=== PATIENT | female | born 1975 | race Caucasian/White ===

== ENCOUNTER 2021-01-17 09:44 | Inpatient (IN) ==
[2021-01-17 10:24] LABS: Basophils # (auto) 0.04 K/uL (0-0.2); Basophils % (auto) 0.6 %; Eosinophils # (auto) 0.45 K/uL (0-0.5); Eosinophils % (auto) 6.9 %; Hematocrit (blood only) 40.3 % (37-47); Immature Granulocytes # (auto) 0.01 K/uL (0.00-0.02); Immature Granulocytes % (auto) 0.2 %; Lymphocytes # (auto) 1.61 K/uL (1.2-3.4); Lymphocytes % (auto) 24.7 %; Mean Corpuscular Hemoglobin 30.9 pg (25-34); Mean Corpuscular Hgb Conc 34.7 g/dL (32-36); Mean Platelet Volume 10.6 fL (7.4-10.4); Monocytes # (auto) 0.52 K/uL (0.11-0.59); Neutrophils # (auto) 3.89 K/uL (1.4-6.5); Neutrophils % (auto) 59.6 %; Platelet Count 160 K/uL (130-400); RDW Coefficient of Variation 12.9 % (11.5-14.5); RDW Standard Deviation 41.8 fL (36.4-46.3); Red Blood Count 4.53 M/uL (4.2-5.4); White Blood Count 6.52 K/uL (4.8-10.8)
--- NOTE | 2021-01-17 10:40 | XRay Report ---
XR chest 1V portable HISTORY: Atypical chest pain. Right-sided chest pain. COMPARISON: None. FINDINGS: A few left basilar linear densities favoring subsegmental atelectasis or scarring. Otherwis e, lungs are clear. The heart is normal in size. No pleural effusions. No pneumothorax. IMPRESSION: A few small linear densities at the left lung base favor subsegmental atelectasis or scarring. Otherw ise, no acute process within the chest. ACT 112: Negative or not required by law. Electronically signed by: Zechariah Ceja M.D. 01/17/2021 10:38 AM
[2021-01-17 11:04] LABS: Alanine Aminotransferase 27 U/L (12-78); Albumin Level 3.6 gm/dl (3.4-5.0); Alkaline Phosphatase 63 U/L (45-117); BUN Creatinine Ratio 21.3 (10-20); Bilirubin,Total 0.4 mg/dl (0.2-1); Blood Urea Nitrogen 16 mg/dl (7-18); Calcium 9.1 mg/dl (8.5-10.1); Carbon Dioxide 26 mmol/L (21-32); Chloride 109 mmol/L (98-107); Creatinine Clr Calc Pharmacy 127.7 ml/min; Est GFR (African American) 108.3; Est GFR (Non-African American) 93.4; Globulin 3.7 gm/dl (2.5-4.0); Glucose 84 mg/dl (70-99); Total Protein 7.3 gm/dl (6.4-8.2); Troponin I < 0.015 ng/ml (0-0.045)
[2021-01-17 11:15] LABS: Aspartate Aminotransferase 16 U/L (15-37); Potassium 4.7 mmol/L (3.5-5.1); Sodium 142 mmol/L (136-145)
[2021-01-17 12:47] LABS: D Dimer 4390 ug/L FEU (0-500)
[2021-01-17] MEDS ORDERED: SODIUM CHLORIDE 0.9% 1000ML 1,000 ML IV ONE (12:48)
[2021-01-17 12:49] LABS: Partial Thromboplastin Ratio 0.9; Partial Thromboplastin Time 24.6 Seconds (21.0-31.0); Prothrombin Time 9.9 Seconds (9.0-12.0)
[2021-01-17] MEDS ORDERED: OPTIRAY 320 125ml IV ONE (13:12)
--- NOTE | 2021-01-17 13:23 | CT Scan Report ---
CT ANGIOGRAM OF THE CHEST CLINICAL HISTORY: Atypical chest pain. Dyspnea. COMPARISON STUDY: Chest x-ray dated 01/17/2021. TECHNIQUE: Following the IV administration of 120 cc of Optiray 320, CT angiogram of the chest was pe rformed from the upper abdomen to the thoracic inlet utilizing the pulmonary embolus protocol. Images are reviewed in the axial, sagittal, and coronal planes. 3-D MIPS images are created and assessed. I V contrast was administered without complication. A dose lowering technique was utilized adhering to the principles of ALARA. CT DOSE: 571.96 mGycm FINDINGS: Thyroid: Imaged portions of the thyroid gland are normal in size and attenuation. Thoracic aorta: The thoracic aorta is normal in caliber and demonstrates bovine variant arch anatomy. No dissection is seen. Pulmonary vasculature: The pulmonary trunk is normal in caliber. There is thrombus within the distal right main pulmonary artery. This extends into the right upper and lower lobar pulmonary arteries int o segmental and subsegmental branches. There is also minimal extension to the right middle lobe pulmo nary artery. There is thrombus within the distal left lower lobar pulmonary artery. This extends into segmental and subsegmental branches. There is also segmental and subsegmental pulmonary embolus with in branches of the left upper lobe pulmonary artery. Heart: The heart is normal in size and without pericardial effusion. Lungs and pleural spaces: There is no airspace consolidation or pleural effusion. Atelectasis is note d at the lung bases. A small focus of subpleural consolidation in the right upper lobe on image #153 likely represents a small pulmonary infarct. The trachea and central airways are clear. Mediastinum: There is no mediastinal lymphadenopathy. Fatou: Clear. Axillae: There is no axillary lymphadenopathy. Upper abdomen: Partially visualized upper abdominal viscera is within normal limits. Skeletal structures: No lytic or blastic bony lesions are seen. IMPRESSION: 1. Extensive bilateral pulmonary emboli as above. 2. There is no airspace consolidation typical for pneumonia or pleural effusion. 3. A small subpleural focus of consolidation in the right upper lobe likely represents a tiny pulmona ry infarct. ACT 112: Negative or not required by law. Electronically signed by: Francis Hennessy M.D. 01/17/2021 1:22 PM
[2021-01-17] MEDS ORDERED: Heparin IV Adult Wt-Based Standard WITH Bolus Protocol IV STA (14:09)
[2021-01-17] MEDS ORDERED: HEPARIN SOD (PORCINE) 1000 UNIT/ML ONE (14:20)
[2021-01-17] MEDS: HEPARIN SODIUM/DEXTROSE 25,000 UNITS/500 ML BAG IV SCH (14:26)
[2021-01-17] MEDS ORDERED: Heparin BOLUS **ED Use Only IV STA (14:29)
--- NOTE | 2021-01-17 15:48 | History & Physical Report ---
Date of Service January 17, 2021 Assessment & Plan (1) Bilateral pulmonary embolism: IV heparin drip standard with bolus Can likely be transitioned to oral anticoagulation tomorrow and discharged as long as hemodynamically and respiratory status stable Given size of pulmonary emboli, protein C deficiency and heterozygous for factor V Leiden mutation recommend treatment for at least 6 months. Ultrasound venous Doppler to assess for DVT in effort to find out whether this is provoked or unprovoked. Consider lifelong anticoagulation if felt to be unprovoked however given her already hypercoagulable state in the setting of the COVID-19 vaccination this may be considered provoked. (2) Anxiety state: Lorazepam as needed (3) Pleuritic chest pain: Acetaminophen as needed (4) Heterozygous factor V Leiden mutation: (5) Protein C deficiency: Admission and Anticipated Discharge Date Admission Date: January 17, 2021 History of Present Illness Chief Complaint: Chest pain, shortness of breath Primary Care Provider: Milla Wood MD Melissa Rodriguez is a 45-year-old female who presents to the ER with shortness of breath and chest pain. She reports 2 days of symptoms which been intermittent but getting progressively worse and more frequent. Chest pain is pleuritic, worse on right side, severity 8/10, better when sitting up. Initially she felt this may be muscular therefore has been taking diclofenac to good effect. However this morning her diclofenac wore off and she was in such significant pain that she was unable to easily get out of bed. She reports feeling generally fatigued since her second Pfizer vaccine 1 week ago. No recent surgeries, lack of movement or long-haul journeys. 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 She does have a significant history of protein C deficiency and heterozygous for factor V Leiden mutation. No contraceptive pill use. -she denies preeclampsia requiring section in 1996, no DVT concern during . She does note 20 years ago having (what she describes sounds like) thrombophlebitis (unknown which side) which was not treated with anticoagulation successfully. In the ER D-dimer was elevated at 4390, subsequent CTA chest shows extensive bilateral pulmonary emboli. She is not hypoxic. She is referred to medicine for admission ongoing management of pulmonary emboli. Allergies Allergy/AdvReac Type Severity Reaction Status Date / Time No Known Allergies Allergy Mild Unverified 01/17/21 11:38 Home Medications Medication Instructions Recorded Confirmed Type spironolactone 25 mg tablet 25 mg PO DAILY tab 07/20/19 01/17/21 History lorazepam 0.5 mg tablet 0.5 mg PO TID PRN #40 tab 11/05/19 01/17/21 Rx rizatriptan 10 mg tablet 10 mg PO .COMPLEX PRN #45 tab 08/28/20 01/17/21 Rx venlafaxine 75 mg capsule,extended 75 mg PO DAILY #90 cap 01/03/21 01/17/21 Rx release 24 hr diclofenac sodium [Voltaren] 0 mg PO DIRECTED PRN 01/17/21 01/17/21 History rivaroxaban [Xarelto DVT-PE Treat 1 ea PO UD #51 ea 01/18/21 Rx 30d Start] Past Med/Surg History Medical History Anxiety state Heterozygous factor V Leiden mutation Migraine Protein C deficiency Surgical History S/P section S/P tonsillectomy S/P wisdom tooth extraction Family History Father Myocardial infarction Stroke Mother Stroke Sister Coronary heart disease Sister No problems noted. Brother Dyslipidemia Brother TIA (transient ischemic attack) Hypertension Alcohol abuse Son No problems noted. Denies family history of Ovarian cancer Prostate cancer Breast cancer Colorectal cancer Social History Smoking Status: Never smoker Second Hand Exposure: No; Do You Dip or Chew Tobacco: No; Hx Alcohol Use: No Hx Substance Use: No Preferred Language: Georgian Communication Ability: Effective Visual Impairment: No Limitations Hearing Ability: Normal Pipe Fitter Helper Required: No Beliefs That Will Affect Care: Holiness Holiness Beliefs: Hinduism marital status: Current Living Situation: Family current occupational status: employed current occupation: administrative Other Information That Helps Us Care for You: No Feels Safe at Home: Yes Safety Concerns: Feels Safe At This Time Childhood Exposure to Second-Hand Smoke: No Dental Care, Regularly: Yes Physical Activity Frequency: Does not Exercise Seatbelt Use: always Sunscreen Use: Yes Assistive Devices: Glasses Review of Systems Review of Systems: All systems reviewed & are unremarkable except as noted in HPI & below Physical Exam Constitutional: WD/WN, vitals as above Eyes: + anicteric sclerae; normal pupil size Respiratory: normal respiratory effort, lungs clear to auscultation Cardiovascular: RRR, no murmur, no edema Gastrointestinal (Abdomen): normal bowel sounds, soft, nontender, no hepatosplenomegaly Musculoskeletal: no cyanosis or clubbing, extremities motor strength 5/5 Skin: no rashes, warm and dry Neurologic: moves all extremities and awake; not confused Psychiatric: A+Ox3, euthymic affect Results & Data Results & Data ([facility]) Vital Signs (Past 12 Hours) Vital Signs Temp Pulse Pulse Resp BP BP Pulse Ox 01/17/21 14:01 79 25 H 158/89 H 97 01/17/21 13:16 74 16 105/78 99 01/17/21 13:11 80 18 105/78 99 01/17/21 12:00 78 22 144/88 H 99 01/17/21 11:30 73 21 142/74 H 98 01/17/21 11:15 97 01/17/21 09:51 36.8 C 67 20 146/78 H 100 Diagnostic Findings XR chest 1V portable IMPRESSION: A few small linear densities at the left lung base favor subsegmental atelectasis or scarring. Otherwise, no acute process within the chest. CT ANGIOGRAM OF THE CHEST IMPRESSION: 1. Extensive bilateral pulmonary emboli as above. 2. There is no airspace consolidation typical for pneumonia or pleural effusion. 3. A small subpleural focus of consolidation in the right upper lobe likely represents a tiny pulmonary infarct. Medications Administered ER medications given: NSS 1 hour bolus Heparin standard IV bolus and drip ECG Indication: chest pain and SOB/dyspnea Rate (beats per minute): 61 Rhythm: normal sinus Findings: no acute ischemic change Comparison ECG Date: no prior available Code Status & VTE Plan Code Status Full VTE Prophylaxis Plan VTE Prophylaxis will be ordered: Yes PG Care Time/CCT Total # of Minutes Spent Total Time Spent with Patient: Total time spent is greater than 50% in coordination of care (as documented) at patient's floor/unit and/or counseling patient: Coding Level of Care Code 67816 Initial Inpt Care Lvl 3 Diagnoses Bilateral pulmonary embolism I26.99 Anxiety state F41.1 Pleuritic chest pain R07.81 Heterozygous factor V Leiden mutation D68.51 Protein C deficiency D68.59
--- NOTE | 2021-01-17 16:56 | Emergency Department Note ---
Impression & Plan Bilateral pulmonary embolism, Heterozygous factor V Leiden mutation, Pleuritic chest pain ED Provider Note NAME: LAURIE FLORES AGE: 45 SEX: F ARRIVES VIA: Walk-In INFORMANT: Patient, ED PROVIDER(S): Dov Navas MD CHIEF COMPLAINT: Chest pain PLAN: Disposition: Admit MEDICAL DECISION MAKING: The patient is a pleasant 45-year-old woman with a past medical history of heterozygous factor V Leiden mutation, protein C deficiency, migraines who p resents to the emergency department for evaluation of pleuritic chest pain that has been ongoing for the past several days which was worse today with mild shortness of breath but resolved prior to arrival. She reports the pain was mostly centered on the right side of her chest and she felt increased pain with deep breaths. She denies any history of DVT or PE in the past though does describe a remote history of a superficial clot. She recalls that it was this diagnosis that led to her testing and her factor V mutation diagnosis. Otherwise she denies any fevers, chills, cough, congestion, GI or symptoms. She did report having her first COVID-19 vaccination over a week ago after which she did have transient body aches that have resolved. She denies any known COVID-19 exposures. On arrival the patient is no acute distress, afebrile stable vital signs. Exam is unremarkable. EKG without overt acute ischemia. Chest x-ray without overt acute cardiopulmonary process. WBC, H/H and platelets within normal limits. Chemistry without metabolic acidosis. Electrolytes and LFTs unremarkable. Troponin negative/undetectable. D-dimer was elevated at 4300 and so CTA of the chest was ordered. CTA of the chest demonstrates bilateral extensive pulmonary emboli with evidence of right upper lobe pulmonary infarct. Findings were reviewed with the patient and she agrees with recommendation for admission. She denies any recent history of GI bleeding or bleeding otherwise. Case was d/w Dr. Almaraz, [facility] hospitalist who will evaluate the patient for admission. We agreed to initiate treatment with heparin at this time given evidence of pulmonary infarct. Triage Nursing notes reviewed and agree them. Prior medical records reviewed Vital Signs: reviewed and remarkable for no significant abnormalities Differential diagnosis: Cardiac ischemia, aortic dissection, pulmonary embolism, pneumothorax, pneumonia, pericarditis, myocarditis, esophageal rupture, GERD, cholecystitis, pancreatitis, musculoskeletal, as well as other pathologies. ER treatment provided: See below. Diagnostics interpreted by me: ECG: Normal sinus rhythm, 61 bpm, no ectopy, no overt ST ovation or depression, QTC 426, QRS 92. Cardiac Monitoring: An order for continuous cardiac monitoring was placed and demonstrated Normal sinus rhythm, 61 bpm, no ectopy. Laboratory studies: See below Imaging studies: See below Consultation(s): Case was d/w Dr. Almaraz, [facility] hospitalist who will evaluate the patient for admission. HPI: The patient is a pleasant 45-year-old woman with a past medical history of heterozygous factor V Leiden mutation, protein C deficiency, migraines who presents to the emergency department for evaluation of pleuritic chest pain that has been ongoing for the past several days which was worse today with mild shortness of breath but resolved prior to arrival. She reports the pain was mostly centered on the right side of her chest and she felt increased pain with deep breaths. She denies any history of DVT or PE in the past though does describe a remote history of a superficial clot. She recalls that it was this diagnosis that led to her testing and her factor V mutation diagnosis. Otherwise she denies any fevers, chills, cough, congestion, GI or symptoms. She did report having her first COVID-19 vaccination over a week ago after which she did have transient body aches that have resolved. She denies any known COVID-19 exposures. ROS: See above HPI for pertinent positives & negatives. A total of 10 systems reviewed and were otherwise negative. PAST MEDICAL HISTORY:See Below PAST SURGICAL HISTORY:See Below FAMILY HISTORY:See Below SOCIAL HISTORY:See Below HOME MEDICATIONS:See Below ALLERGIES:See Below VITALS:See Below PHYSICAL EXAMINATION: GENERAL: Awake, alert, well-appearing, in no distress HENT: Normocephalic, atraumatic. Oropharynx unremarkable. EYES: Normal conjunctiva. Sclera non-icteric. NECK: Supple. No nuchal rigidity. FROM. No JVD. RESPIRATORY: Clear to auscultation. CARDIAC: Regular rate, normal rhythm. Extremities warm and well perfused. Pulses equal. ABDOMEN: Soft, non-distended. No tenderness to palpation. No rebound or gua rding. No masses. RECTAL: Deferred. MUSCULOSKELETAL: Chest examination reveals no tenderness. The back is symmetrical on inspection without obvious abnormality. There is no CVA tenderness to palpation. No joint edema. LOWER EXTREMITIES: Calves are equal size bilaterally and non-tender. No edema. No discoloration. NEURO: Normal sensorium. No sensory or motor deficits noted. SKIN: No rash or jaundice noted. ED COURSE: Critical Care: I have personally spent greater than 35 minutes of critical care time in the direct management of this patient. This includes bedside care, interpretation of diagnostic studies, and testing, discussion with consultants, patient, and family members, and other required patient management activities. This 35 m inutes is in excess of all separately billable procedures. Dov Navas MD Past Med/Surg History Medical History Anxiety state Heterozygous factor V Leiden mutation Migraine Protein C deficiency Surgical History S/P section S/P tonsillectomy S/P wisdom tooth extraction Family History Father Myocardial infarction Stroke Mother Stroke Sister Coronary heart disease Sister No problems noted. Brother Dyslipidemia Brother TIA (transient ischemic attack) Hypertension Alcohol abuse Son No problems noted. Denies family history of Ovarian cancer Prostate cancer Breast cancer Colorectal cancer Social History Smoking Status: Never smoker Second Hand Exposure: No; Do You Dip or Chew Tobacco: No; Hx Alcohol Use: No Hx Substance Use: No Preferred Language: Ethiopian Communication Ability: Effective Visual Impairment: No Limitations Hearing Ability: Normal Seo Analyst Required: No Beliefs That Will Affect Care: Zoroastrian Zoroastrian Beliefs: Latter Day marital status: Current Living Situation: Family current occupational status: employed current occupation: administrative Other Information That Helps Us Care for You: No Feels Safe at Home: Yes Safety Concerns: Feels Safe At This Time Childhood Exposure to Second-Hand Smoke: No Dental Care, Regularly: Yes Physical Activity Frequency: Does not Exercise Seatbelt Use: always Sunscreen Use: Yes Assistive Devices: Glasses Allergies Allergies Allergy/AdvReac Type Severity Reaction Status Date / Time No Known Allergies Allergy Mild Unverified 01/17/21 11:38 Home Meds Home Medications Medication Instructions Recorded Confirmed spironolactone 25 mg tablet 25 mg PO DAILY tab 07/20/19 01/17/21 diclofenac sodium [Voltaren] 0 mg PO DIRECTED PRN 01/17/21 01/17/21 Previous Rx's Medication Instructions Recorded lorazepam 0.5 mg tablet 0.5 mg PO TID PRN #40 tab 11/05/19 rizatriptan 10 mg tablet 10 mg PO .COMPLEX PRN #45 tab 08/28/20 venlafaxine 75 mg capsule,extended 75 mg PO DAILY #90 cap 01/03/21 release 24 hr Results & Data (ED) Vital Signs Vital Signs - 24 hr 01/17/21 09:51 01/17/21 11:15 01/17/21 11:30 Temperature 36.8 C Temperature Source Skin Pulse Rate 67 73 Pulse Rate [Apical] Pulse Rate from SpO2 Sensor 70 Respiratory Rate 20 21 Respiratory Effort / Characteristics Non-Labored Spontaneous Respiratory Depth Normal Respiratory Pattern Regular Blood Pressure 146/78 H 142/74 H Blood Pressure [Right Arm] Blood Pressure Mean 100 96 Blood Pressure Mean [Right Arm] Pulse Oximetry 100 97 98 Oxygen Delivery Method Room Air Room Air Sepsis Recent Fever Within 48 Hours No Sepsis New/Unexplained Change in Mental Status N/A Sepsis Action Taken by Nursing No Action Required 01/17/21 12:00 01/17/21 13:11 01/17/21 13:16 Temperature Temperature Source Pulse Rate 78 80 Pulse Rate [Apical] 74 Pulse Rate from SpO2 Sensor 80 Respiratory Rate 22 18 16 Respiratory Effort / Characteristics Respiratory Depth Respiratory Pattern Blood Pressure 144/88 H 105/78 Blood Pressure [Right Arm] 105/78 Blood Pressure Mean 106 87 Blood Pressure Mean [Right Arm] 87 Pulse Oximetry 99 99 99 Oxygen Delivery Method Room Air Sepsis Recent Fever Within 48 Hours Sepsis New/Unexplained Change in Mental Status Sepsis Action Taken by Nursing 01/17/21 14:01 01/17/21 15:00 Temperature Temperature Source Pulse Rate 79 76 Pulse Rate [Apical] Pulse Rate from SpO2 Sensor 80 77 Respiratory Rate 25 H 18 Respiratory Effort / Characteristics Respiratory Depth Respiratory Pattern Blood Pressure 158/89 H 147/93 H Blood Pressure [Right Arm] Blood Pressure Mean 112 111 Blood Pressure Mean [Right Arm] Pulse Oximetry 97 96 Oxygen Delivery Method Sepsis Recent Fever Within 48 Hours Sepsis New/Unexplained Change in Mental Status Sepsis Action Taken by Nursing Laboratory Data Attestation: I reviewed the patient's lab results. Result diagrams: 01/17/21 10:10 01/17/21 10:10 Lab Results 01/17/21 01/17/21 01/17/21 Range/Units 10:10 10:10 10:10 WBC 6.52 (4.8-10.8) K/uL RBC 4.53 (4.2-5.4) M/uL Hgb 14.0 (12.0-16.0) g/dL Hct 40.3 (37-47) % MCV 89.0 (80-100) fL MCH 30.9 (25-34) pg MCHC 34.7 (32-36) g/dL RDW Std Deviation 41.8 (36.4-46.3) fL RDW Coeff of Neftaly 12.9 (11.5-14.5) % Plt Count 160 (130-400) K/uL MPV 10.6 H (7.4-10.4) fL Immature Gran % (Auto) 0.2 % Neut % (Auto) 59.6 % Lymph % (Auto) 24.7 % [place] % (Auto) 8.0 % Eos % (Auto) 6.9 % Baso % (Auto) 0.6 % Neut # (Auto) 3.89 (1.4-6.5) K/uL Lymph # (Auto) 1.61 (1.2-3.4) K/uL [place] # (Auto) 0.52 (0.11-0.59) K/uL Eos # (Auto) 0.45 (0-0.5) K/uL Baso # (Auto) 0.04 (0-0.2) K/uL Immature Gran # (Auto) 0.01 (0.00-0.02) K/uL PT Cancelled INR Cancelled APTT Cancelled PTT Ratio Cancelled D-Dimer (0-500) ug/L FEU Sodium 142 (136-145) mmol/L Potassium 4.7 (3.5-5.1) mmol/L Chloride 109 H (98-107) mmol/L Carbon Dioxide 26 (21-32) mmol/L Anion Gap 7.0 (3-11) BUN 16 (7-18) mg/dl Creatinine 0.76 (0.6-1.2) mg/dl Est Cr Clr Drug Dosing 127.7 ml/min Est GFR ( Amer) 108.3 Est GFR (Non-Af Amer) 93.4 BUN/Creatinine Ratio 21.3 H (10-20) Glucose 84 (70-99) mg/dl Calcium 9.1 (8.5-10.1) mg/dl Total Bilirubin 0.4 (0.2-1) mg/dl AST 16 (15-37) U/L ALT 27 (12-78) U/L Alkaline Phosphatase 63 (45-117) U/L Troponin I < 0.015 (0-0.045) ng/ml Total Protein 7.3 (6.4-8.2) gm/dl Albumin 3.6 (3.4-5.0) gm/dl Globulin 3.7 (2.5-4.0) gm/dl Albumin/Globulin Ratio 1.0 (0.9-2) Specimen Hemolysis COVID-19 Eval Order SARS-CoV-2 (PCR) (Negative) Influenza Type A (PCR) (Neg) Influenza Type B (PCR) (Neg) RSV (RT-PCR) (Neg) 01/17/21 01/17/21 01/17/21 Range/Units 10:10 14:30 14:30 WBC (4.8-10.8) K/uL RBC (4.2-5.4) M/uL Hgb (12.0-16.0) g/dL Hct (37-47) % MCV (80-100) fL MCH (25-34) pg MCHC (32-36) g/dL RDW Std Deviation (36.4-46.3) fL RDW Coeff of Neftaly (11.5-14.5) % Plt Count (130-400) K/uL MPV (7.4-10.4) fL Immature Gran % (Auto) % Neut % (Auto) % Lymph % (Auto) % [place] % (Auto) % Eos % (Auto) % Baso % (Auto) % Neut # (Auto) (1.4-6.5) K/uL Lymph # (Auto) (1.2-3.4) K/uL [place] # (Auto) (0.11-0.59) K/uL Eos # (Auto) (0-0.5) K/uL Baso # (Auto) (0-0.2) K/uL Immature Gran # (Auto) (0.00-0.02) K/uL PT 9.9 INR 1.0 APTT 24.6 PTT Ratio 0.9 D-Dimer 4390 H* (0-500) ug/L FEU Sodium (136-145) mmol/L Potassium (3.5-5.1) mmol/L Chloride (98-107) mmol/L Carbon Dioxide (21-32) mmol/L Anion Gap (3-11) BUN (7-18) mg/dl Creatinine (0.6-1.2) mg/dl Est Cr Clr Drug Dosing ml/min Est GFR ( Amer) Est GFR (Non-Af Amer) BUN/Creatinine Ratio (10-20) Glucose (70-99) mg/dl Calcium (8.5-10.1) mg/dl Total Bilirubin (0.2-1) mg/dl AST (15-37) U/L ALT (12-78) U/L Alkaline Phosphatase (45-117) U/L Troponin I (0-0.045) ng/ml Total Protein (6.4-8.2) gm/dl Albumin (3.4-5.0) gm/dl Globulin (2.5-4.0) gm/dl Albumin/Globulin Ratio (0.9-2) Specimen Hemolysis COVID-19 Eval Order [facility]FluRsv at [facility] SARS-CoV-2 (PCR) NEGATIVE (Negative) Influenza Type A (PCR) Negative (Neg) Influenza Type B (PCR) Negative (Neg) RSV (RT-PCR) Negative (Neg) Administered Medications Acetaminophen (Acetaminophen 325 Mg Tab) 650 mg PO Q4H PRN PRN Reason: Pain Stop: 02/16/21 19:19 Last Admin: 01/17/21 19:28 Dose: 650 mg Documented by: [id number] Heparin Sodium/Dextrose (Heparin Sodium/Dextrose) 25,000 units in 500 mls @ 32 mls/hr IV .[id number] [facility]; Protocol Stop: 02/16/21 14:14 Last Titration: 01/17/21 21:18 Dose: 1,500 units/hr, 30 mls/hr Documented by: [id number] Cosigned by: [id number] Titration: 01/17/21 18:41 Dose: 1,600 units/hr, 32 mls/hr Documented by: [id number] Cosigned by: [id number] Admin: 01/17/21 14:26 Dose: 1,600 units/hr, 32 mls/hr Documented by: [id number] Cosigned by: [id number] Discontinued Medications Heparin Sodium (Porcine) (Heparin Sod (Porcine) 1000 Unit/Ml 10 Ml Vial) Confirm Administered Dose 10,000 units .ROUTE .STK-MED ONE Stop: 01/17/21 14:21 Last Admin: 01/17/21 14:26 Dose: 7,000 units Documented by: [id number] Cosigned by: [id number] Heparin Sodium (Porcine) (Heparin Bolus Ed Use Only) 7,000 units IV NOW STA Stop: 01/17/21 14:30 Last Admin: 01/17/21 14:49 Dose: Not Given Documented by: [id number] Heparin Sodium/Dextrose (Heparin Iv Standard With Bolus) 1 ea IV NOW STA; Protocol Stop: 01/17/21 14:10 Last Admin: 01/17/21 14:26 Dose: Not Given Documented by: [id number] Sodium Chloride (Nss 1000ml) 1,000 mls @ 999 mls/hr IV .Q1H1M ONE Stop: 01/17/21 13:48 Last Infusion: 01/17/21 13:58 Dose: 0 mls/hr Documented by: [id number] Admin: 01/17/21 12:57 Dose: 999 mls/hr Documented by: [id number] Ioversol (Optiray 320 125ml) 120 ml IV ONCE ONE Stop: 01/17/21 13:13 Last Admin: 01/17/21 13:12 Dose: 120 ml Documented by: [id number] Imaging Data Radiologist's Impression: Chest CTA 01/17/21 12:48 CT ANGIOGRAM OF THE CHEST CLINICAL HISTORY: Atypical chest pain. Dyspnea. COMPARISON STUDY: Chest x-ray dated 01/17/2021. TECHNIQUE: Following the IV administration of 120 cc of Optiray 320, CT angiogram of the chest was performed from the upper abdomen to the thoracic inlet utilizing the pulmonary embolus protocol. Images are reviewed in the axial, sagittal, and coronal planes. 3-D MIPS images are created and assessed. IV contrast was administered without complication. A dose lowering technique was utilized adhering to the principles of ALARA. CT DOSE: 571.96 mGycm FINDINGS: Thyroid: Imaged portions of the thyroid gland are normal in size and attenuation. Thoracic aorta: The thoracic aorta is normal in caliber and demonstrates bovine variant arch anatomy. No dissection is seen. Pulmonary vasculature: The pulmonary trunk is normal in caliber. There is thrombus within the distal right main pulmonary artery. This extends into the right upper and lower lobar pulmonary arteries into segmental and subsegmental branches. There is also minimal extension to the right middle lobe pulmonary artery. There is thrombus within the distal left lower lobar pulmonary artery. This extends into segmental and subsegmental branches. There is also segmental and subsegmental pulmonary embolus within branches of the left upper lobe pulmonary artery. Heart: The heart is normal in size and without pericardial effusion. Lungs and pleural spaces: There is no airspace consolidation or pleural effusion. Atelectasis is noted at the lung bases. A small focus of subpleural consolidation in the right upper lobe on image #153 likely represents a small pulmonary infarct. The trachea and central airways are clear. Mediastinum: There is no mediastinal lymphadenopathy. Fatou: Clear. Axillae: There is no axillary lymphadenopathy. Upper abdomen: Partially visualized upper abdominal viscera is within normal limits. Skeletal structures: No lytic or blastic bony lesions are seen. IMPRESSION: 1. Extensive bilateral pulmonary emboli as above. 2. There is no airspace consolidation typical for pneumonia or pleural effusion. 3. A small subpleural focus of consolidation in the right upper lobe likely represents a tiny pulmonary infarct. ACT 112: Negative or not required by law. Electronically signed by: Francis Hennessy M.D. 01/17/2021 1:22 PM Discharge Plan Visit Data Chief Complaint: Chest Pain Stated Complaint: R CHEST PAIN ED Provider: Dov Navas Discharge Problem: Bilateral pulmonary embolism, Heterozygous factor V Leiden mutation, Pleuritic chest pain Patient Disposition: Admitted As Inpatient Discharge Instructions Interventions: ED Discharge Assessment Last Done: 01/17/21 18:14
[2021-01-17 17:53] LABS: Influenza A virus by PCR Negative (Neg); Influenza B virus by PCR Negative (Neg); RSV by PCR Negative (Neg); SARS CoV2 RNA(COVID-19) InHosp NEGATIVE (Negative)
[2021-01-17] MEDS ORDERED: LORazepam 0.5 MG TAB PO PRN (18:34)
[2021-01-17] MEDS ORDERED: ACETAMINOPHEN 325 MG TAB PO PRN (19:20)
[2021-01-17 21:00] LABS: Partial Thromboplastin Ratio 2.6
[2021-01-17 21:07] LABS: Partial Thromboplastin Time 69.5 Seconds (21.0-31.0)
[2021-01-18 03:38] LABS: Partial Thromboplastin Ratio 2.6
[2021-01-18 03:51] LABS: Partial Thromboplastin Time 66.9 Seconds (21.0-31.0)
--- NOTE | 2021-01-18 06:12 | Electrocardiogram Report ---
Test Reason : Blood Pressure : / mmHG Vent. Rate : 061 BPM Atrial Rate : 061 BPM P-R Int : 134 ms QRS Dur : 092 ms QT Int : 424 ms P-R-T Axes : 051 052 046 degrees QTc Int : 426 ms Poor data quality, interpretation may be adversely affected Normal sinus rhythm Low voltage QRS Borderline ECG No previous ECGs available Confirmed by Sixto Hayward ([id number]) on 01/18/2021 6:12:13 AM Referred By: Confirmed By:Sixto Hayward
[2021-01-18] MEDS: HEPARIN SODIUM/DEXTROSE 25,000 UNITS/500 ML BAG IV SCH ×2 (07:07→08:27)
--- NOTE | 2021-01-18 07:22 | Ultrasound Report ---
BILATERAL LOWER EXTREMITY VENOUS DOPPLER HISTORY: Pulmonary emboli. Assess for DVT. COMPARISON STUDY: Venous Doppler 01/16/2018. FINDINGS: There is a 5.5 x 3.1 x 5.4 cm popliteal cyst. Questionable nonocclusive thrombus within the right posterior tibial and peroneal veins. The remaining bilateral lower extremity deep venous struc tures are patent. IMPRESSION: Questionable nonocclusive DVT within the right posterior tibial and peroneal veins. No left lower ext remity DVT. ACT 112: Negative or not required by law. Electronically signed by: Zechariah Ceja M.D. 01/18/2021 7:21 AM
[2021-01-18] MEDS ORDERED: VENLAFAXINE HCL XR 75 MG CAPXR PO SCH (09:00)
[2021-01-18] MEDS ORDERED: RIVAROXABAN 15 MG TAB PO SCH (09:00)
[2021-01-18 10:38] LABS: Partial Thromboplastin Ratio 4.3
[2021-01-18 10:40] LABS: Partial Thromboplastin Time 113.1 Seconds (21.0-31.0)
--- NOTE | 2021-01-21 08:28 | Discharge Summary ---
Date of Service January 18, 2021 Admission HPI Per Admitting Provider Melissa Rodriguez is a 45-year-old female who presents to the ER with shortness of breath and chest pain. She reports 2 days of symptoms which been intermittent but getting progressively worse and more frequent. Chest pain is pleuritic, worse on right side, severity 8/10, better when sitting up. Initially she felt this may be muscular therefore has been taking diclofenac to good effect. However this morning her diclofenac wore off and she was in such significant pain that she was unable to easily get out of bed. She reports feeling generally fatigued since her second Pfizer vaccine 1 week ago. No recent surgeries, lack of movement or long-haul journeys. 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 She does have a significant history of protein C deficiency and heterozygous for factor V Leiden mutation. No contraceptive pill use. -she denies preeclampsia requiring section in 1996, no DVT concern during . She does note 20 years ago having (what she describes sounds like) thrombophlebitis (unknown which side) which was not treated with anticoagulation successfully. In the ER D-dimer was elevated at 4390, subsequent CTA chest shows extensive bilateral pulmonary emboli. She is not hypoxic. She is referred to medicine for admission ongoing management of pulmonary emboli. Principal Diagnosis Bilateral pulmonary emboli Discharge Exam Constitutional WD/WN, vitals as above Neck trachea midline, no thyromegaly Respiratory normal respiratory effort, lungs clear to auscultation Cardiovascular RRR, no murmur, no edema Gastrointestinal (Abdomen) normal bowel sounds, soft, nontender, no hepatosplenomegaly Musculoskeletal no cyanosis or clubbing, extremities motor strength 5/5 Skin no rashes, warm and dry Neurologic patellar DTR's 2+ bilat, sensation intact and PERRL, EOMI, accommodation nl, no face palsy, no dysarthria Psychiatric A+Ox3, euthymic affect Lymphatic no cervical or axillary lymphadenopathy Discharge Data Allergies Allergy/AdvReac Type Severity Reaction Status Date / Time No Known Allergies Allergy Mild Unverified 01/17/21 11:38 Consultations 01/17/21 14:10 ED Decision to Admit Stat Ordered Studies 01/17/21 12:48 CT angio chest PE protocol Stat 01/17/21 19:57 US venous doppler LE Stat Hospital Course (1) Bilateral pulmonary embolism: IV heparin drip standard with bolus Ultrasound venous Doppler: small right LE DVT, no DVT on the left patient remained hemodynamically stable, no hypoxia only complaint was right sided chest pain, subtle, worse with deep breath no dyspnea at rest or on exertion protein C deficiency and heterozygous for factor V Leiden mutation, already known she received COVID vaccine prior to getting the clot, could be considered provoked would treat with Xarelto for 6-12 months transitioned to Xarelto 15mg BID x 21 days then 20mg daily expensive co-pay, given discount card to make Xarelto more affordable follow up with PCP (2) Anxiety state: Lorazepam as needed (3) Pleuritic chest pain: Acetaminophen as needed (4) Heterozygous factor V Leiden mutation: (5) Protein C deficiency: Total Time Total Time Spent Total Time Spent (In Minutes): 33 minutes Total Time Includes: Examination of the Patient, Discharge Planning, Medication Reconciliation and Communication With Other Providers (spoke with [facility] pharmacy) Discharge Plan Discharge Items Patient Disposition: Home - Self-Care Reason For Visit: PULMONARY EMBOLI Discharge Diagnosis: Bilateral pulmonary embolism Right leg DVT Condition on Discharge: Good Goals: treat clots with Xarelto Activity: Resume your previous activity Driving/Machine Use: No limitations Weightbearing: Full weightbearing Non-emergency contact: Primary Care Provider Call non-emergency contact if: you have any medication questions and your symptoms worsen Follow-up/Referrals: Milla Wood MD [Primary Care Provider] - 01/24/21 9:20 am (Please follow up with KIERRA Doe (Dr. Wood) on Friday01/24/21 at 9:20 am. Please arrive to the office at 9:05 am for your appointment. If you are unable to keep this appointment, please call the office to reschedule at [phone]. ) Diet: Regular Addtl Attending Provider Instructions: Medications: - XARELTO: take 15mg twice a day for 21 days then change to 20mg daily in the evening, will be on this for 6-12 months Bilateral pulmonary embolism, right leg DVT no hypoxemia, vitals stable pain is due to small pulmonary infarct and will take a few days to weeks to resolve most likely a perfect storm of having Factor V, protein C deficiency and getting COVID shot and some immobility follow up with PCP in a week no restrictions Pending Studies at Discharge: No Stand-Alone Forms: My [facility] GoTable, Smoking Cessation Medications and DC Order Prescriptions: New Xarelto 15 mg tablet 15 mg PO BID 21 Days Qty: 42 RF: 0 Xarelto 20 mg tablet 20 mg PO DAILY Qty: 30 RF: 3 Continued lorazepam 0.5 mg tablet 0.5 mg PO TID PRN (Reason: anxiety) Qty: 40 RF: 0 rizatriptan 10 mg tablet 10 mg PO .COMPLEX PRN (Reason: migraine headache) Qty: 45 RF: 3 venlafaxine [Effexor XR] 75 mg capsule,extended release 24hr 75 mg PO DAILY Qty: 90 RF: 2 spironolactone 25 mg tablet 25 mg PO DAILY RF: 0 diclofenac sodium 25 mg Tablet,Delayed Release (Dr/Ec) 0 mg PO DIRECTED PRN (Reason: Pain) RF: 0 Discharge Orders: Discharge Order (Routine); Ordered 01/18/21 Ordered By: Hong Li Admission Data Admit Date/Time: 01/17/21 16:02 Attending Provider: Hong Li Admit Provider: Wes Almaraz Primary Care Provider: Milla Wood Other Providers: Wes Almaraz Other Interventions: Discharge Summary Assessment (RN) Last Done: 01/18/21 11:37 Coding Level of Care Code D/C Day Management >30 mins Diagnoses Bilateral pulmonary embolism I26.99 Anxiety state F41.1 Pleuritic chest pain R07.81 Heterozygous factor V Leiden mutation D68.51 Protein C deficiency D68.59
== END 2021-01-18 13:37 | disposition home or self-care (01) | DRG 176 ==
LOC: ED 09:44 → 2S 16:02 → SUATTDRO 16:02 → 2S 18:14

== ENCOUNTER 2021-08-24 06:49 | Observation (INO) ==
--- NOTE | 2021-08-22 11:54 | Anesthesiology Consultation ---
Date of Service August 22, 2021 Assessment & Plan (1) Encounter for pre-operative examination: Chart Review Chart Review: Acceptable Risk for Surgery and Patient NOT seen in Pre Admission Testing -Surgeon possibly holding Xarelto 1 day prior to surgery -did speak with surgeon's office and instructed office to check with vascular medicine prior to having patient hold medication if needed. - Check test AM DOS Per nursing assessment 08/22/2021, patient denies any recent travel. No known Covid infection in the past 90 days. Patient is fully vaccinated for Covid. No known Covid positive contacts or Covid related symptoms. Covid testing 08/21/21= negative Patient last seen by PCP 07/26/2021 = PCP aware of upcoming hysterectomyabnorm al uterine lining that cannot be biopsied due to history of ablation. Depressionfor the most part stablewe will continue current medication at current dose at this time. The painwe will check x-ray of knees. Patient seen by vascular medicine 05/24/2021 = seen for evaluation of venous disease. Admitted in January 2021 with right lower extremity DVT and PE. Occurred several days after Covid vaccine, not clearly a provoked DVT/PE. Therefore some concern she is at elevated risk for VTE. Recent venous reflux study without DVT, prior DVT was below the knee. At this point felt reasonable to continue anticoagulation for 12 months then consider discontinuing. Plan to obtain baseline echo, evaluate RV function. Highly symptomatic reflux of right GSVwould avoid endovenous ablation at this point. History Surgery Operation Date: 08/24/21 08:10 Proposed Procedures p Total Laparoscopic Hysterectomy, Bilateral Salpingectomy, Cystoscopy, Possible Laparotomy - Tanner Ramirez MD Height/Weight Height: 5 ft 9 in Weight: 121.109 kg Allergies Allergy/AdvReac Type Severity Reaction Status Date / Time No Known Allergies Allergy Mild Unverified 07/26/21 14:51 Medications Home Medications Medication Instructions Recorded Confirmed Last Taken spironolactone 25 mg tablet 25 mg PO QAM tab 07/20/19 08/22/21 01/21/21 lorazepam 0.5 mg tablet 0.5 mg PO TID PRN #40 tab 11/05/19 08/22/21 01/22/21 rizatriptan 10 mg tablet 10 mg PO .COMPLEX PRN #45 tab 08/28/20 08/22/21 Unknown aspirin 81 mg tablet,delayed 81 mg PO QAM 08/22/21 08/22/21 Unknown release rivaroxaban 20 mg tablet (Xarelto) 20 mg PO QPM 08/22/21 08/22/21 Unknown venlafaxine 75 mg capsule,extended 75 mg PO QAM 08/22/21 08/22/21 Unknown release 24 hr (Effexor XR) Past Medical History Medical History Anxiety Heterozygous factor V Leiden mutation History of DVT (deep vein thrombosis) 01/2021 - RLE - on xarelto History of migraine History of pulmonary embolism 01/2021 - RLE DVT Migraine Osteoarthritis Protein C deficiency Sciatica Superficial vein thrombosis > 20 years ago Past Family History Family History Father Myocardial infarction Stroke Mother Stroke Sister Coronary heart disease Sister No problems noted. Brother Dyslipidemia Brother Alcohol abuse TIA (transient ischemic attack) Hypertension Son No problems noted. Other No family history of adverse response to anesthesia Denies family history of Ovarian cancer Prostate cancer Breast cancer Colorectal cancer Past Surgical History Surgical History History of History of endometrial ablation History of tonsillectomy History of wisdom tooth extraction Social History Smoking Status: Never smoker Do You Dip or Chew Tobacco: No Hx Alcohol Use: No Hx Substance Use: No substance use type: does not use Testing Laboratory Results 08/16/21= WBC: 6.90 H/H: 14.5/44.9 PLATELETS: 224 SODIUM: 139 POTASSIUM: 4.7 CHLORIDE: 102 CO2: 26 BUN: 10 CREATININE: 0.8 GLUCOSE: 95 PT: 13.4 INR: 1.00 Electrocardiogram Date: 01/22/21 Findings: + NSR @ (67bpm) Low voltage QRS. Chest X-Ray Date: 01/22/21 1 view CXR Minor left basilar atelectatic changes. Otherwise negative AP portable study Echocardiogram Date: 06/07/21 EF: 55-60% LV Function: normal RWMA: + none Other Findings: no LVH Valvular Disease: + no significant valvular disease Borderline right atrial enlargement
[~2021-08-24 06:49] MED LIST: LACTATED RINGER'S 1,000 ML IV SCH; LR 15ML/HR IV SCH; SODIUM CHLORIDE 0.9% 1000ML 1,000 ML IV SCH
[2021-08-24] MEDS ORDERED: DEXAMETHASONE SOD INJ 4 MG/ML VIAL ONE (07:48)
[2021-08-24] MEDS ORDERED: fentaNYL citrate 100 MCG/2 ML VIAL ONE ×2 (07:48→10:51)
[2021-08-24] MEDS ORDERED: MIDAZOLAM HCL 1 MG/ML 2ML VIAL ONE (07:48)
[2021-08-24] MEDS ORDERED: ONDANSETRON INJ 2 MG/ML 2 ML VIAL ONE (07:48)
[2021-08-24] MEDS ORDERED: LIDOCAINE 2% 2 ML VIAL/AMP(20MG/ML) INFIL ONE (07:48)
[2021-08-24] MEDS ORDERED: ROCURONIUM BROMIDE 10 MG/ML 5 ML VIAL IV ONE ×5 (07:48→10:55)
[2021-08-24] MEDS ORDERED: PROPOFOL IV EMULSION 10 MG/ML 20 ML VIAL IV ONE (07:48)
[2021-08-24] MEDS ORDERED: fentaNYL citrate 100 MCG/2 ML VIAL IV PRN (08:15)
[2021-08-24] MEDS ORDERED: ONDANSETRON INJ 2 MG/ML 2 ML VIAL IV PRN ×3 (08:15→16:34)
[2021-08-24] MEDS ORDERED: ePHEDrine sulfate 50 MG/ML AMP IV PRN (08:15)
[2021-08-24] MEDS ORDERED: ATROPINE SULFATE 0.1 MG/ML 10ML SYR IV PRN (08:15)
[2021-08-24] MEDS ORDERED: BUPIVACAINE 0.5 % 5 MG/1 ML MPF 30ML VIAL ONE (08:22)
--- NOTE | 2021-08-24 08:27 | History & Physical Bridge Note ---
Date of Service August 24, 2021 History & Physical Bridge Note I have examined the patient, reviewed the History & Physical and in the interval since the performance of the History & Physical I have noted the following changes of clinical significance: no changes noted
[2021-08-24] MEDS ORDERED: MINERAL OIL LIGHT 10 ML BTL ONE (09:25)
[2021-08-24] MEDS ORDERED: GLYCOPYRROLATE 0.2 MG/ML VIAL ONE (10:58)
[2021-08-24] MEDS ORDERED: NEOSTIGMINE METHYLSULFATE 1 MG/ML 10ML VIAL ONE (10:58)
[2021-08-24] MEDS ORDERED: FLOSEAL HEMOSTATIC MATRIX 10ML TOP ONE (11:13)
[2021-08-24] MEDS ORDERED: oxyCODONE/ACETAMINOPHEN 5mg/325mg TAB PO PRN ×3 (12:16→16:34)
[2021-08-24] MEDS ORDERED: METOCLOPRAMIDE HCL INJ 5 MG/ML 2 ML VIAL IV PRN (12:16)
--- NOTE | 2021-08-24 12:16 | Post Operative Brief Note ---
Immediate Post Op Note v1 Date of Surgery August 24, 2021 Pre & Post Diagnosis Operation Date: 08/24/21 08:10 Pre-Op Diagnosis: Endometrial Intraepithelial Neoplasia Post-Op Diagnosis: Endometrial Intraepithelial Neoplasia I identified the patient and participated in the time-out.: Yes Procedure Operation Date: 08/24/21 08:10 Actual Procedures p Total Laparoscopic Hysterectomy, Bilateral Salpingectomy, and Cystoscopy(Bilateral) - Tanner Ramirez MD Surgeon Tanner Ramirez MD Public Health Microbiologist Krystina lee Estimated Blood Loss 10 Findings Consistent with Post-Op Diagnosis Drains Ford Catheter (18 Fr ford catheter inserted by Dr. Ramirez without difficulty, draining clear yellow urine. Anesthesia to monitor urine output. )
[2021-08-24] MEDS ORDERED: MEPERIDINE HCL 25 MG/ML CARP/VIAL IV PRN (12:48)
[2021-08-24] MEDS ORDERED: MEPERIDINE HCL 25 MG/ML CARP/VIAL ONE (12:51)
--- NOTE | 2021-08-24 13:09 | Anesthesiology Progress Note ---
Date of Service August 24, 2021 Anesthesia Post Procedure Vital Signs Vital Signs: Temp Pulse Pulse Resp BP Pulse Ox 08/24/21 13:05 88 20 127/62 100 08/24/21 12:55 77 21 123/67 97 08/24/21 12:45 85 21 130/64 98 08/24/21 12:35 81 20 133/63 100 08/24/21 12:25 88 20 137/67 100 08/24/21 12:19 97.2 F L 96 H 16 124/77 100 08/24/21 07:30 98.2 F 66 18 136/70 98 Transfer of Care Handoff Completed per policy Notes Mental Status: alert / awake / arousable and participated in evaluation Patient Amnestic to Procedure: Yes Nausea / Vomiting: adequately controlled Pain: adequately controlled Airway Patency, RR, SpO2: stable & adequate BP & HR: stable & adequate Hydration State: stable & adequate Anesthetic Complications: no major complications apparent and Pt Satisfied with anesthetic care
--- NOTE | 2021-08-24 16:33 | Progress Note ---
Date of Service August 24, 2021 Assessment & Plan (1) Postop check: Plan: s/p TLH, Cystoscopy Pt does to go home because she does not feel good ggod C/o nausea and feeling faint stable vital will keep pt for observation overnight Results & Data ([facility]) Vital Signs (Past 12 Hours) Vital Signs Temp Pulse Pulse Resp BP Pulse Ox 08/24/21 16:20 36.9 C 93 H 18 118/75 95 08/24/21 15:20 36.6 C 96 H 18 128/76 97 08/24/21 14:20 36.4 C L 82 16 121/65 98 08/24/21 13:50 36.5 C 75 16 116/74 98 08/24/21 13:20 36.5 C 81 16 118/53 L 98 08/24/21 13:15 36.6 C 74 20 118/56 L 99 08/24/21 13:05 88 20 127/62 100 08/24/21 12:55 77 21 123/67 97 08/24/21 12:45 85 21 130/64 98 08/24/21 12:35 81 20 133/63 100 08/24/21 12:25 88 20 137/67 100 08/24/21 12:19 36.2 C L 96 H 16 124/77 100 08/24/21 07:30 36.8 C 66 18 136/70 98
[2021-08-24] MEDS ORDERED: ZOLPIDEM TARTRATE 5 MG TAB PO PRN (16:34)
[2021-08-24] MEDS ORDERED: PROMETHAZINE HCL 25 MG in SODIUM CHLORIDE 0.9% 50 ML IV PRN (16:34)
[2021-08-24] MEDS ORDERED: PROMETHAZINE HCL 12.5 MG in SODIUM CHLORIDE 0.9% 50 ML IV PRN (16:34)
[2021-08-24] MEDS ORDERED: ACETAMINOPHEN 325 MG TAB PO PRN (16:34)
[2021-08-24] MEDS: LACTATED RINGER'S 1,000 ML IV SCH (17:40)
--- NOTE | 2021-08-24 20:21 | Operative Report (OR) ---
DATE OF SURGERY: 08/24/2021 INDICATION FOR SURGERY: This is a 46-year-old with endometrial intraepithelial neoplasia. The patie nt agreed to undergo hysterectomy. PREOPERATIVE DIAGNOSIS: Endometrial intraepithelial neoplasia. POSTOPERATIVE DIAGNOSIS: Endometrial intraepithelial neoplasia. SURGEON: Tanner Ramirez MD. ORDER ENTRY ADMINISTRATOR: Krystina Spivey. ATTESTATION FOR ORDER ENTRY ADMINISTRATOR: Blending Supervisor was necessary to help with retraction and manipulation of instr uments in order to provide for safe surgery. PROCEDURE: 1. Total laparoscopic hysterectomy. 2. Bilateral salpingectomy. 3. Cystoscopy. ANESTHESIA: General. DRAINS: None. ESTIMATED BLOOD LOSS: 10 mL. INTRAVENOUS FLUIDS: 1000 mL. URINE OUTPUT: 200 mL of william-colored urine. SPECIMEN: Uterus with cervix, left and right fallopian tubes. INTRAOPERATIVE COMPLICATIONS: None. PATIENT CONDITION: Stable. DISPOSITION: Postanesthesia care unit. ATTESTATION: I performed the entire procedure. FINDINGS: Normal female escutcheon. Cervix and vagina appeared grossly normal. Laparoscopic findin gs show a normal, about 8-10 week size uterus. There were adhesions of the left adnexa to the left a bdominal wall. There was also adhesion of the omentum to the umbilicus. The rest of the abdominopel eliu exam otherwise was unremarkable. DESCRIPTION OF PROCEDURE: The patient was taken to the operating room where she was prepped and drap ed in normal sterile fashion. Timeout was called. Dubose catheter was placed in the bladder. A weig hted speculum was placed in the vagina. Griffin retractor was used to retract the anterior part of the vagina. Single tooth tenaculum was used to grab the cervix. A medium size VCare is placed into the uterus and the cervix was sutured to the VCare. This was to help manipulate the uterus during laparo scopy. Attention was paid to the abdominal part of the procedure where a supraumbilical incision was made wi th an 11 blade and carried to the fascia. Fascia was grabbed with M[place]. A Veress needle was intro duced into the abdomen at a 45-degree angle while tenting up the abdomen. Intra-abdominal placement was confirmed with a water-filled syringe and hang drop and suction test was performed. 4 L of CO2 g as was then used to insufflate the abdomen. The Veress needle was removed. A 5 mm nonbladed trocar with a laparoscope was introduced into the abdomen at a 45-degree angle while tenting up the abdomen. This was a nonbladed trocar under direct visualization. Once inside the abdomen, the findings are as dictated above. Three accessory ports were placed, two 11 mm trocars on the left and one 5 mm on the right. General inspection of the abdomen was performed and findings are as dictated. LigaSure was passed th rough the left accessory port and the omentum attached to the umbilicus adhesion was dissected. Ther e was good hemostasis. Using traction and countertraction, the left adnexa was dissected off the lef t wall of the abdomen. There was good hemostasis. The left fallopian tube was now identified and gr abbed 4 cm from the cornua of the uterus with the LigaSure and transected. This was followed by open ing of the left anterior leaf of the broad ligament. This allowed fenestration of the posterior left broad ligament. The mid-section of the left fallopian tube, utero-ovarian and meso-ovarian pedicles were all transected as well. Same procedure was performed on the contralateral side on the right. The anterior broad ligament dis section was carried out to the mid-section of the vesicouterine peritoneum over the bladder using the Harmonic scalpel. Same procedure was carried out on the contralateral side. The posterior broad li gament peritoneum was carefully dissected also from both sides over the uterosacral arch in order to displace the ureters laterally. Using traction and countertraction, [place] retractor and irrigatio n probe were used to further dissect the bladder off the lower segment of the uterus. Bladder pillar s and pubovesical fascia were dissected as well. Harmonic scalpel was used to obtain hemostasis wher e needed. Uterine manipulator was now palpable over the vaginal tissue. The right uterine pedicles were skelet onized and coagulated with the LigaSure. Good hemostasis was obtained. Same procedure was performed on the contralateral side. Cardinal ligaments were transected on both sides. Once good hemostasis was obtained, colpotomy was performed using the LigaSure hook from both sides. Uterus was removed th rough the vagina while still attached to the uterine manipulator. The glove with gauze was placed in the uterus to help establish pneumoperitoneum. With a grasper, the remaining section of the left tu be and ovary positioned anteromedially and salpingectomy performed using the LigaSure. Same procedur e was performed on the contralateral side. EndoStitch closure device was passed through the 10 mm port on the left and using the [place] graspe r for retraction, colpotomy closure was performed. The uterosacral ligaments were incorporated into the closure in order to decrease the risks of prolapse. Lapra-Tys were used with the EndoStitch. Attention was paid to the cystoscopy part of the procedure where a cystoscope was placed into the mike dder. There is no gross hematuria in the bladder. No sutures seen in the bladder. Both ureteral or ifices are seen. Urine was seen dripping out of the ureteral orifices without any difficulties. The cystoscope was removed. The 10 mm ports are closed under direct visualization using a laparoscopic suture passer. This is to prevent future hernia from the 10 mm trocar sites. Skin incisions are all closed with 4-0 Monocryl and Dermabond. All instruments were removed from the uterus and the vagina and the bladder and accounted for x2. Th e patient is sent to recovery in stable condition. Job ID: [id number]
[2021-08-24] MEDS ORDERED: COUGH DROP (SUGAR FREE) LOZ 24 LOZ/1 BOX BUCCAL PRN (20:38)
[2021-08-24] MEDS ORDERED: RIVAROXABAN 20 MG TAB PO SCH (20:39)
[2021-08-24] MEDS: DOCUSATE SODIUM 100 MG CAP PO SCH (20:56)
[2021-08-24] MEDS: SIMETHICONE 80 MG CHEW PO PRN (20:56)
[2021-08-24] MEDS ORDERED: MoRPHine SULFATE 2 MG/ML CARP IV SCH (22:00)
[2021-08-24] MEDS ORDERED: MoRPHine SULFATE 2 MG/ML CARP IV PRN (22:09)
[2021-08-25] MEDS: LACTATED RINGER'S 1,000 ML IV SCH (01:20)
[2021-08-25] MEDS: oxyCODONE/ACETAMINOPHEN 5mg/325mg TAB PO PRN ×3 (04:15→13:08)
[2021-08-25 07:01] LABS: ALC (manual) 1.52 K/uL (1.2-3.4); ANC (manual) 9.43 K/uL (1.4-6.5); Eosinophils % (manual) 0.9 %; Hematocrit (blood only) 36.7 % (37-47); Hemoglobin 12.2 g/dL (12.0-16.0); Lymphocytes # (manual) 1.52 K/uL (1.2-3.4); Mean Corpuscular Hemoglobin 30.9 pg (25-34); Mean Corpuscular Hgb Conc 33.2 g/dL (32-36); Mean Corpuscular Volume 92.9 fL (80-100); Mean Platelet Volume 10.3 fL (7.4-10.4); Monocytes # (manual) 0.61 K/uL (0.11-0.59); Monocytes % (manual) 5.2 %; Neutrophils # (manual) 9.43 K/uL (1.4-6.5); Neutrophils % (manual) 80.9 %; Platelet Count 207 K/uL (130-400); RDW Coefficient of Variation 13.5 % (11.5-14.5); RDW Standard Deviation 46.1 fL (36.4-46.3); Red Blood Count 3.95 M/uL (4.2-5.4); White Blood Count 11.66 K/uL (4.8-10.8)
[2021-08-25 07:10] LABS: BUN Creatinine Ratio 10.9 (10-20); Calcium 8.7 mg/dl (8.5-10.1); Creatinine Clr Calc Pharmacy 188.2 ml/min; Est GFR (African American) 93.9 ml/min; Potassium 4.2 mmol/L (3.5-5.1)
[2021-08-25] MEDS: SIMETHICONE 80 MG CHEW PO PRN (07:27)
[2021-08-25] MEDS: DOCUSATE SODIUM 100 MG CAP PO SCH (07:27)
[2021-08-25 07:52] VITALS: BP 134/74; PULSE 85; TEMP 97.7; O2SAT 98
--- NOTE | 2021-08-25 14:38 | Gynecologic Progress Note ---
Date of Service August 25, 2021 Assessment & Plan (1) Postop check: Plan: Pain well controlled on p.o. medication, will discharge home on p.o. Percocet Patient to follow-up with postop visit as previously scheduled. Admission and Anticipated Discharge Date Admission Date: August 24, 2021 Subjective Patient comfortable in bed at this time, pain has been well controlled with p.o. medication, been able to ambulate and urinate normally. Has not passed gas or had a bowel movement yet. Denies any nausea or vomiting, eating and drinking well. No other complaints at this time and wants to go home Review of Systems Review of Systems: All systems reviewed & are unremarkable except as noted in HPI & below Physical Exam Constitutional: WD/WN, vitals as above Respiratory: normal respiratory effort, lungs clear to auscultation Cardiovascular: RRR, no murmur, no edema Gastrointestinal (Abdomen): normal bowel sounds, soft, nontender, no hepatosplenomegaly (mind tenderness to palpation ) Incision x4 clean dry intact and healing, no guarding or rebound Results & Data ([facility]) Vital Signs (Past 12 Hours) Vital Signs Temp Pulse Resp BP Pulse Ox 08/25/21 07:30 36.5 C 85 18 134/74 98 08/25/21 04:05 36.6 C 98 H 17 119/66 96 Laboratory Results H/H 12.2/36.7%, creatinine 0.85
--- NOTE | 2021-09-05 05:27 | Discharge Summary (DS) ---
DATE OF SURGERY: 08/24/2021. DATE OF DISCHARGE: 08/25/2021. HISTORY OF PRESENT ILLNESS: This is a 46-year-old G1, P0, status post menorrhagia, and endometrial i ntraepithelial neoplasia. The patient underwent total laparoscopic hysterectomy with bilateral salpi ngectomy and cystoscopy. Details of surgery are in the surgical note. Postop initial plan was to di scharge the patient to home; however, in recovery she had so much pain from postop and difficulty voi ding, the patient declined to be discharged home that day and was admitted for observation overnight. She was discharged home in stable condition on 08/25/2021. PAST MEDICAL HISTORY: Elevated BMI, history of anxiety, factor V Leiden mutation, and protein C defi ciency. PAST SURGICAL HISTORY: History of section, dental procedure, endometrial ablation, and tons ils and adenoids removal at age 10. SOCIAL HISTORY: The patient is . Denies tobacco, drug or alcohol use. FAMILY HISTORY: Noncontributory. ALLERGIES: No known drug allergies. REVIEW OF SYSTEMS: Negative. PHYSICAL EXAMINATION: VITAL SIGNS: On discharge were as follows: Blood pressure 134/74, pulse 85, respirations 18, temper ature 36.5. GENERAL: Well-developed, well-nourished white female in no acute distress. HEART: S1 and S2, regular rhythm and rate. LUNGS: Clear to auscultation bilaterally. Incision clean, dry and intact. EXTREMITIES: No cyanosis, clubbing or edema. LABORATORY DATA: Labs on 08/25/2021, white count was 11.6, hemoglobin was 12.2, hematocrit was 36.7, platelets were 207. CONDITION ON DISCHARGE: Stable. OPERATIONS: Total laparoscopic hysterectomy with bilateral salpingectomy and cystoscopy. DISCHARGE DIAGNOSIS: Postop after surgery. PLAN ON DISCHARGE: The patient is discharged home with instructions regarding activity, diet, follow up appointment, and medications. Job ID: [id number]
== END 2021-08-25 15:05 | disposition home or self-care (01) ==
LOC: ASU 06:49 → 4S2 06:49